=== PATIENT | male | born 1960 | race African-American/Black ===

== ENCOUNTER 2018-06-05 09:18 | Inpatient (IN) | payer MEDICAID ==
[~2018-06-05] VITALS: Ht 180.3 cm; Wt 90.7 kg
[2018-06-05] MEDS ORDERED: SODIUM CHLORIDE 0.9% 1,000 ML IV ONE (10:53)
[2018-06-05] MEDS ORDERED: ALBUTEROL (0.083%) 2.5MG/3ML NEB HHN STA (10:53)
[2018-06-05] MEDS ORDERED: IPRATROPIUM BROMIDE (0.02%) 0.5MG/2.5ML NEB HHN STA (10:53)
[2018-06-05] MEDS ORDERED: METHYLPREDNISOLONE SOD SUCC 125 MG/2 ML VIAL IV ONE (11:00)
[2018-06-05 11:57] LABS: CHLORIDE 105 mEq/L (98-107)
[2018-06-05 12:10] LABS: BASOPHILS % 0.5 % (0.0-2.0); EOSINOPHILS % 1.1 % (0.0-5.0); HEMATOCRIT. 38.8 % (42.0-52.0); HEMOGLOBIN. 12.7 g/dL (14.0-18.0); LYMPHOCYTES % 24.8 % (20.0-50.0); MEAN CORPUSCULAR HEMOGLOBIN 26.6 pg (28.0-32.0); MEAN CORPUSCULAR VOLUME 81.1 fL (80.0-94.0); MEAN PLATELET VOLUME 8.8 fl (7.4-10.4); MONOCYTES % 7.2 % (2.0-8.0); NEUTROPHILS % 66.4 % (40.0-76.0); PLATELET 280 x1000/uL (130-400); RED BLOOD CELL COUNT 4.78 mill/uL (4.7-6.1); RED CELL DISTRIBUTION WIDTH 15.9 % (11.6-14.6)
[2018-06-05 12:31] LABS: CLARITY URINE CLEAR (CLEAR); COLOR URINE YELLOW (YELLOW); KETONES URINE 1+ (NEGATIVE); LEUKOCYTE ESTERASE URINE NEGATIVE (NEGATIVE); NITRITE URINE NEGATIVE (NEGATIVE); OCCULT BLOOD URINE NEGATIVE (NEGATIVE); PROTEIN URINE 1+ (NEGATIVE); SPECIFIC GRAVITY URINE 1.021 (1.005-1.030)
[2018-06-05] MEDS ORDERED: FUROSEMIDE 40MG/4ML VIAL IVP NR (12:55)
[2018-06-05] MEDS ORDERED: LEVOFLOXACIN 750MG PREMIX 150 ML IV NR ×2 (12:55→22:30)
[2018-06-05] MEDS ORDERED: IOHEXOL-350 100 ML BOTTLE ONE (13:12)
[2018-06-05 13:35] LABS: PROTHROMBIN TIME 10.2 sec (9.1-11.1)
[2018-06-05] MEDS ORDERED: DEXTROSE 50% WATER 50ML SYRINGE IV PRN (14:00)
[2018-06-05] MEDS ORDERED: IPRATROPIUM/ALBUTEROL 0.5-3(2.5)MG/3ML NEB HHN PRN (14:00)
[2018-06-05] MEDS ORDERED: CLONIDINE 0.1MG TABLET PO PRN (14:00)
[2018-06-05 16:26] LABS: BG BASE EXCESS 3.2 mmol/L (-2.0-2.0); BG CARBOXYHEMOGLOBIN 1.4 % (0.5-1.5); BG DEOXYHEMOGLOBIN 9.3 % (0.0-5.0); BG FRACTION INSPIRED OXYGEN 36; BG HCO3 ACT 27.8 mmol/L (22.0-26.0); BG METHEMOGLOBIN 0.2 % (0.0-1.5); BG OXYGEN SATURATION 90.5 % (92.0-98.5); BG OXYHEMOGLOBIN 89.1 % (94.0-97.0); BG PCO2 42.4 mmHg (35.0-45.0); BG PH 7.434 (7.350-7.450); BG PO2 57.3 mmHg (75.0-100.0); BG SAMPLE SITE RIGHT RADIAL; BG TOTAL HEMOGLOBIN 12.8 g/dL (12.0-18.0); BG VENT MODE NASAL CANNULA
[2018-06-05] MEDS: IPRATROPIUM/ALBUTEROL 0.5-3(2.5)MG/3ML NEB HHN SCH (20:10)
[2018-06-05 21:00] VITALS: BP 171/100
[2018-06-05 21:15] VITALS: BP 171/100
[2018-06-05] MEDS ORDERED: POTASSIUM CHLORIDE 20MEQ TABLET SR PO NR (21:30)
[2018-06-05] MEDS: LOSARTAN POTASSIUM 50 MG TABLET PO SCH (22:14)
[2018-06-05] MEDS: AMLODIPINE 5MG TABLET PO SCH (22:14)
[2018-06-05] MEDS: BLOOD SUGAR DIAGNOSTIC STRIP TEST SCH (22:14)
[2018-06-05] MEDS: INSULIN LISPRO 100 UNITS/ML SUBCUT SCH (22:33)
[2018-06-05 23:20] VITALS: BP 124/82
[2018-06-06] VITALS: BP 134/88
[2018-06-06 04:00] VITALS: BP 131/85
[2018-06-06] MEDS: BLOOD SUGAR DIAGNOSTIC STRIP TEST SCH ×4 (06:29→21:15)
[2018-06-06 07:32] LABS: BASOPHILS % 0.5 % (0.0-2.0); HEMATOCRIT. 35.5 % (42.0-52.0); HEMOGLOBIN. 11.7 g/dL (14.0-18.0); LYMPHOCYTES % 17.6 % (20.0-50.0); MEAN CORPUSCULAR HEMOGLOBIN 26.4 pg (28.0-32.0); MEAN CORPUSCULAR VOLUME 80.2 fL (80.0-94.0); MEAN PLATELET VOLUME 8.8 fl (7.4-10.4); MONOCYTES % 11.1 % (2.0-8.0); NEUTROPHILS % 70.8 % (40.0-76.0); PLATELET 261 x1000/uL (130-400); RED BLOOD CELL COUNT 4.43 mill/uL (4.7-6.1); RED CELL DISTRIBUTION WIDTH 15.5 % (11.6-14.6)
[2018-06-06] MEDS: IPRATROPIUM/ALBUTEROL 0.5-3(2.5)MG/3ML NEB HHN SCH ×3 (07:54→22:25)
[2018-06-06 08:03] VITALS: BP 152/94
[2018-06-06] MEDS: AMLODIPINE 5MG TABLET PO SCH ×2 (08:51→21:08)
[2018-06-06] MEDS: LOSARTAN POTASSIUM 50 MG TABLET PO SCH (08:51)
[2018-06-06] MEDS: FUROSEMIDE 40MG/4ML VIAL IVP SCH (08:52)
[2018-06-06] MEDS: INSULIN LISPRO 100 UNITS/ML SUBCUT SCH ×4 (08:53→21:32)
[2018-06-06 11:17] LABS: CHLORIDE 107 mEq/L (98-107)
[2018-06-06] MEDS ORDERED: PNEUMOCOCCAL 23-VAL P-SAC VAC 0.5 ML IM ONE (12:00)
[2018-06-06 12:29] VITALS: BP 144/90
[2018-06-06] MEDS: LEVOFLOXACIN 500MG PREMIX 100 ML IV SCH (14:11)
[2018-06-06 16:21] VITALS: BP 143/85
[2018-06-06] MEDS: BENZONATATE 100MG CAPSULE PO SCH ×2 (16:24→21:07)
[2018-06-07] MEDS: BENZONATATE 100MG CAPSULE PO SCH ×3 (05:15→21:27)
[2018-06-07] MEDS: INSULIN LISPRO 100 UNITS/ML SUBCUT SCH ×4 (05:20→21:41)
[2018-06-07] MEDS: BLOOD SUGAR DIAGNOSTIC STRIP TEST SCH ×4 (05:20→21:28)
[2018-06-07 08:00] VITALS: BP 159/104
[2018-06-07] MEDS: AMLODIPINE 5MG TABLET PO SCH ×2 (08:54→21:27)
[2018-06-07] MEDS: FUROSEMIDE 40MG/4ML VIAL IVP SCH ×2 (08:54→09:04)
[2018-06-07] MEDS: LOSARTAN POTASSIUM 50 MG TABLET PO SCH (08:54)
[2018-06-07 09:10] LABS: BASOPHILS % 0.4 % (0.0-2.0); EOSINOPHILS % 1.3 % (0.0-5.0); HEMATOCRIT. 37.2 % (42.0-52.0); HEMOGLOBIN. 12.2 g/dL (14.0-18.0); LYMPHOCYTES % 25.6 % (20.0-50.0); MEAN CORPUSCULAR HEMOGLOBIN 26.6 pg (28.0-32.0); MEAN PLATELET VOLUME 8.5 fl (7.4-10.4); MONOCYTES % 8.9 % (2.0-8.0); NEUTROPHILS % 63.8 % (40.0-76.0); PLATELET 289 x1000/uL (130-400); RED CELL DISTRIBUTION WIDTH 15.7 % (11.6-14.6)
[2018-06-07] MEDS: IPRATROPIUM/ALBUTEROL 0.5-3(2.5)MG/3ML NEB HHN SCH ×3 (09:17→20:48)
[2018-06-07 10:14] LABS: CHLORIDE 105 mEq/L (98-107)
[2018-06-07] MEDS ORDERED: HYDROCODONE/ACETAMINOPHEN 5/325MG TABLET PO PRN (10:15)
[2018-06-07 12:00] VITALS: BP 139/90
[2018-06-07] MEDS: ACETAMINOPHEN 325MG TABLET PO PRN (13:08)
[2018-06-07] MEDS ORDERED: POTASSIUM CHLORIDE 20MEQ TABLET SR PO NR (13:15)
[2018-06-07] MEDS: LEVOFLOXACIN 500MG PREMIX 100 ML IV SCH (14:48)
[2018-06-07 16:00] VITALS: BP 148/96
[2018-06-07 20:00] VITALS: BP 144/88
[2018-06-08] VITALS: BP 135/74
[2018-06-08 04:00] VITALS: BP 140/78
[2018-06-08] MEDS: BLOOD SUGAR DIAGNOSTIC STRIP TEST SCH ×3 (06:50→17:40)
[2018-06-08] MEDS: BENZONATATE 100MG CAPSULE PO SCH ×2 (06:51→14:03)
[2018-06-08] MEDS: INSULIN LISPRO 100 UNITS/ML SUBCUT SCH ×3 (07:57→18:10)
[2018-06-08 08:00] VITALS: BP 145/93
[2018-06-08] MEDS: IPRATROPIUM/ALBUTEROL 0.5-3(2.5)MG/3ML NEB HHN SCH ×2 (08:11→13:21)
[2018-06-08] MEDS: LOSARTAN POTASSIUM 50 MG TABLET PO SCH (08:42)
[2018-06-08] MEDS: AMLODIPINE 5MG TABLET PO SCH (08:42)
[2018-06-08] MEDS: ACETAMINOPHEN 325MG TABLET PO PRN (08:45)
[2018-06-08 09:09] LABS: BASOPHILS % 0.4 % (0.0-2.0); EOSINOPHILS % 2.3 % (0.0-5.0); HEMATOCRIT. 39.9 % (42.0-52.0); HEMOGLOBIN. 12.9 g/dL (14.0-18.0); LYMPHOCYTES % 29.6 % (20.0-50.0); MEAN CORPUSCULAR HEMOGLOBIN 26.2 pg (28.0-32.0); MEAN CORPUSCULAR VOLUME 81.2 fL (80.0-94.0); MEAN PLATELET VOLUME 7.9 fl (7.4-10.4); MONOCYTES % 8.7 % (2.0-8.0); PLATELET 313 x1000/uL (130-400); RED BLOOD CELL COUNT 4.92 mill/uL (4.7-6.1)
[2018-06-08] MEDS: FUROSEMIDE 40MG/4ML VIAL IVP SCH (09:47)
[2018-06-08 10:30] LABS: CHLORIDE 106 mEq/L (98-107)
[2018-06-08 12:00] VITALS: BP 149/50
[2018-06-08] MEDS ORDERED: PAPAVERINE HCL 30 MG/ML 2ML IV ONE (12:33)
[2018-06-08] MEDS: POTASSIUM CHLORIDE 20MEQ TABLET SR PO SCH ×2 (14:02→17:46)
[2018-06-08] MEDS ORDERED: LEVOFLOXACIN 500MG PREMIX 100 ML IV SCH (15:30)
[2018-06-08 16:00] VITALS: BP 136/79
[2018-06-08] MEDS ORDERED: OMEP20CA10 PO (16:14)
[2018-06-08] MEDS ORDERED: ATEN50TA PO (16:14)
[2018-06-08] MEDS ORDERED: METF-416 PO (16:14)
[2018-06-08] MEDS ORDERED: DUTA0.5C15 PO (16:14)
[2018-06-08] MEDS ORDERED: QUIN40TA14 PO (16:14)
[2018-06-08] MEDS ORDERED: ALBU18HF2 IH (16:14)
[2018-06-08] MEDS ORDERED: FERR325T6 PO (16:14)
[2018-06-08] MEDS ORDERED: LOVA20TA2 PO (16:14)
[2018-06-08 16:25] VITALS: BP 131/85
== END 2018-06-08 19:48 | disposition home or self-care (01) | DRG 720 ==
LOC: ER 09:18 → 7WST 12:58 → EDBEDREQTM 13:01 → EDBEDREQ 13:01 → ENRESERV 20:05
PROVIDERS: ADMIT Internal Medicine; ATTEND Internal Medicine
DX: A41.9 Sepsis, unspecified organism (principal); J96.01 Acute respiratory failure with hypoxia; I50.31 Acute diastolic (congestive) heart failure; J18.9 Pneumonia, unspecified organism; I27.20 Pulmonary hypertension, unspecified; I11.0 Hypertensive heart disease with heart failure; D64.9 Anemia, unspecified; E11.9 Type 2 diabetes mellitus without complications; R65.10 Systemic inflammatory response syndrome (SIRS) of non-infectious origin without acute organ dysfunction; E87.6 Hypokalemia; Z87.891 Personal history of nicotine dependence; Z90.49 Acquired absence of other specified parts of digestive tract
CPT/HCPCS: 36415; 36600; 71045; 71275; 80048; 80061; 82375; 82805; 82962; 83036; 83605; 83880; 84145; 84443; 84484; 87070; 87804; 90732; 93005; 93306; 94640; 96374; 99291; J1815; J1940; J1956; J2440; J2930; J7030; J7050; J7611; J7620; Q9967

== ENCOUNTER 2022-05-26 21:02 | Inpatient (IN) | payer MEDICAID, OTHER ==
[~2022-05-26] VITALS: Ht 180.3 cm; Wt 107.0 kg
[~2022-05-26 21:02] MED LIST: ALBU18HF2 IH; ATEN50TA PO; DUTA0.5C37 PO; FERR325T6 PO; LOVA20TA2 PO; METF-416 PO; OMEP20CA14 PO
[2022-05-27] MEDS ORDERED: CEFTRIAXONE 1 G PREMIX 50 ML IV ONE (02:00)
[2022-05-27] MEDS ORDERED: AZITHROMYCIN 500MG/250ML 250 ML IV ONE (02:00)
[2022-05-27 02:01] LABS: BASOPHILS % 0.6 % (0.0-2.0); EOSINOPHILS % 1.8 % (0.0-5.0); HEMATOCRIT. 36.8 % (42.0-52.0); HEMOGLOBIN. 12.1 g/dL (14.0-18.0); LYMPHOCYTES % 22.6 % (20.0-50.0); MEAN CORPUSCULAR HEMOGLOBIN 26.1 pg (28.0-32.0); MEAN CORPUSCULAR VOLUME 79.7 fL (80.0-94.0); MEAN PLATELET VOLUME 7.9 fl (7.4-10.4); MONOCYTES % 6.6 % (2.0-8.0); NEUTROPHILS % 68.4 % (40.0-76.0); PLATELET 288 x1000/uL (130-400); RED BLOOD CELL COUNT 4.63 mill/uL (4.7-6.1); RED CELL DISTRIBUTION WIDTH 17.5 % (11.6-14.6)
[2022-05-27 02:12] LABS: CHLORIDE 111 mEq/L (98-107)
[2022-05-27] MEDS ORDERED: ONDANSETRON HCL 4MG/2ML INJ IV PRN (10:00)
[2022-05-27] MEDS ORDERED: ACETAMINOPHEN 325MG TABLET PO PRN (10:00)
[2022-05-27] MEDS: LOSARTAN POTASSIUM 100 MG TABLET PO SCH (11:16)
[2022-05-27] MEDS: POTASSIUM CHLORIDE 20MEQ TABLET SR PO SCH (11:17)
[2022-05-27] MEDS: FUROSEMIDE 40MG/4ML VIAL IVP SCH (11:17)
[2022-05-27 15:05] VITALS: BP 199/109
[2022-05-27] MEDS ORDERED: HYDRALAZINE HCL 100MG TABLET PO NR (15:15)
[2022-05-27] MEDS ORDERED: XALAO EACHEYE (15:39)
[2022-05-27] MEDS ORDERED: BRIM15DR8 EACHEYE (15:39)
[2022-05-27] MEDS ORDERED: GLIP10TA10 PO (15:39)
[2022-05-27] MEDS ORDERED: ASPI-1406 PO (15:39)
[2022-05-27] MEDS ORDERED: POTA-185 PO (15:39)
[2022-05-27] MEDS ORDERED: NIFE-32 PO (15:39)
[2022-05-27] MEDS ORDERED: VALS40TA11 PO (15:39)
[2022-05-27] MEDS ORDERED: TIOT18CA3 IH (15:39)
[2022-05-27] MEDS ORDERED: CALC-992 PO (15:39)
[2022-05-27] MEDS ORDERED: DORZ10DR9 EACHEYE (15:39)
[2022-05-27] MEDS ORDERED: ATOR10TA69 PO (15:39)
[2022-05-27] MEDS ORDERED: DOCU-150 PO (15:39)
[2022-05-27] MEDS ORDERED: DUTA1CPM4 PO (15:39)
[2022-05-27] MEDS ORDERED: TADA20TA PO (15:41)
[2022-05-27] MEDS ORDERED: VIAG100 PO (15:41)
[2022-05-27 16:30] VITALS: BP 158/91
[2022-05-27] MEDS ORDERED: DEXTROSE 50% WATER 50ML SYRINGE IV PRN (19:15)
[2022-05-27] MEDS ORDERED: GUAIFENESIN-DM 200MG-20MG/10ML UDC PO PRN (19:15)
[2022-05-27 20:00] VITALS: BP 165/120
[2022-05-27] MEDS: HYDRALAZINE HCL 100MG TABLET PO SCH (21:07)
[2022-05-27] MEDS: INSULIN LISPRO 100 UNITS/ML SUBCUT SCH (21:48)
[2022-05-27] MEDS: BLOOD SUGAR DIAGNOSTIC STRIP TEST SCH (21:48)
[2022-05-27] MEDS: IPRATROPIUM BROMIDE (0.02%) 0.5MG/2.5ML NEB HHN SCH (22:00)
[2022-05-27] MEDS: AZITHROMYCIN 500 MG TABLET PO SCH (22:01)
[2022-05-27] MEDS ORDERED: CLONIDINE 0.1MG TABLET PO PRN (23:00)
[2022-05-27] MEDS ORDERED: LATANOPROST 0.005% OPHTH DROPS 2.5ML EACHEYE SCH (23:12)
[2022-05-28] VITALS: BP 187/99
[2022-05-28] MEDS: IPRATROPIUM BROMIDE (0.02%) 0.5MG/2.5ML NEB HHN SCH ×2 (02:55→14:15)
[2022-05-28 04:00] VITALS: BP 137/75
[2022-05-28] MEDS: HYDRALAZINE HCL 100MG TABLET PO SCH ×2 (05:26→13:04)
[2022-05-28] MEDS ORDERED: CEFTRIAXONE 1,000 MG in DEXTROSE 5% WATER 50 ML IV SCH (06:00)
[2022-05-28] MEDS: BLOOD SUGAR DIAGNOSTIC STRIP TEST SCH ×2 (06:26→12:59)
[2022-05-28] MEDS: INSULIN LISPRO 100 UNITS/ML SUBCUT SCH ×2 (06:26→13:02)
[2022-05-28 08:00] VITALS: BP 151/93
[2022-05-28 08:28] LABS: CHLORIDE 105 mEq/L (98-107)
[2022-05-28] MEDS ORDERED: DORZOLAM/TIMOLOL 2.23/0.68% OPHTH DROPS 10ML EACHEYE SCH (09:00)
[2022-05-28] MEDS: BRIMONIDINE 0.2% OPHTH DROPS 5ML EACHEYE SCH ×2 (09:59→13:01)
[2022-05-28] MEDS: FUROSEMIDE 40MG/4ML VIAL IVP SCH (09:59)
[2022-05-28] MEDS: LOSARTAN POTASSIUM 100 MG TABLET PO SCH (10:00)
[2022-05-28] MEDS: POTASSIUM CHLORIDE 20MEQ TABLET SR PO SCH (10:00)
[2022-05-28] MEDS: AZITHROMYCIN 500 MG TABLET PO SCH (10:00)
[2022-05-28 12:00] VITALS: BP 142/100
[2022-05-28] MEDS ORDERED: LEVO-65 MT (13:57)
[2022-05-28] MEDS ORDERED: HYDR100T26 PO (13:57)
[2022-05-28] MEDS ORDERED: FURO-152 MT (13:57)
[2022-05-28 16:35] VITALS: BP 142/100
[2022-05-28 19:38] LABS: *AMPHETAMINES SCREEN URINE NEGATIVE (NEGATIVE); *BARBITURATES SCREEN URINE NEGATIVE (NEGATIVE); *BENZODIAZEPINES SCREEN URINE NEGATIVE (NEGATIVE); *COCAINE SCREEN URINE NEGATIVE (NEGATIVE); CANNABINOID URINE SCREEN NEGATIVE (NEGATIVE); METHADONE URINE SCREEN NEGATIVE (NEGATIVE); OPIATES URINE SCREEN NEGATIVE (NEGATIVE); PHENCYCLIDINE URINE SCREEN NEGATIVE (NEGATIVE)
== END 2022-05-28 17:06 | disposition home or self-care (01) | DRG 194 ==
LOC: ER 21:02 → 8WST 05-27 04:48 → EDBEDREQ 05-27 04:52 → EDBEDREQTM 05-27 04:52 → ENRESERV 05-27 14:19
PROVIDERS: ADMIT Internal Medicine; ATTEND Internal Medicine
DX: I11.0 Hypertensive heart disease with heart failure (principal); J96.00 Acute respiratory failure, unspecified whether with hypoxia or hypercapnia; I50.41 Acute combined systolic (congestive) and diastolic (congestive) heart failure; J18.9 Pneumonia, unspecified organism; I16.0 Hypertensive urgency; E87.6 Hypokalemia; E11.9 Type 2 diabetes mellitus without complications; Z20.822 Contact with and (suspected) exposure to COVID-19; E66.9 Obesity, unspecified; Z68.32 Body mass index [BMI] 32.0-32.9, adult; Z79.899 Other long term (current) drug therapy; Z87.891 Personal history of nicotine dependence; Z90.49 Acquired absence of other specified parts of digestive tract
CPT/HCPCS: 36415; 71045; 80048; 80053; 80305; 82962; 83605; 83880; 84484; 85025; 87426; 93005; 93306; 94640; 99285; C9803; J0456; J0696; J1815; J1940; J7060

== ENCOUNTER 2023-02-23 19:35 | Emergency (ER) | payer MEDICAID, OTHER ==
[~2023-02-23] VITALS: Ht 180.3 cm; Wt 95.0 kg
[~2023-02-23 19:35] MED LIST changes: +ASPI-1406 PO; -ATEN50TA PO; +ATOR10TA69 PO; +BRIM15DR8 EACHEYE; +CALC-992 PO; +DOCU-150 PO; +DORZ10DR9 EACHEYE; -DUTA0.5C37 PO; +DUTA1CPM4 PO; -FERR325T6 PO; +FURO-152 MT; +GLIP10TA10 PO; +HYDR100T26 PO; +LEVO-65 MT; -LOVA20TA2 PO; +NIFE-32 PO; -OMEP20CA14 PO; +POTA-185 PO; +TADA20TA PO; +TIOT18CA3 IH; +VALS40TA11 PO; +VIAG100 PO; +XALAO EACHEYE
[2023-02-23 19:40] VITALS: O2SAT 98
[2023-02-23 21:09] LABS: BASOPHILS % 0.3 % (0.0-2.0); DIFFERENTIAL COMMENT 0; EOSINOPHILS % 0.6 % (0.0-5.0); HEMATOCRIT. 38.3 % (42.0-52.0); HEMOGLOBIN. 12.6 g/dL (14.0-18.0); LYMPHOCYTES % 13.3 % (20.0-50.0); MEAN CORPUSCULAR HEMOGLOBIN 25.6 pg (28.0-32.0); MEAN CORPUSCULAR HGB CONC 32.8 g/dL (31.0-37.0); MEAN PLATELET VOLUME 7.5 fl (7.4-10.4); MONOCYTES % 5.9 % (2.0-8.0); NEUTROPHILS % 79.9 % (40.0-76.0); PLATELET 253 x1000/uL (130-400); RED BLOOD CELL COUNT 4.91 mill/uL (4.7-6.1); WHITE BLOOD COUNT 11.3 x1000/uL (4.5-11.0)
[2023-02-23 21:16] LABS: CHLORIDE 103 mEq/L (98-107); INDEX HEMOLYSI 2 (1-3); INDEX ICTERIC 1 (1-4); INDEX LIPEMIC 1 (1-3); POTASSIUM 3.6 mEq/L (3.5-5.1); SODIUM 135 mEq/L (136-145)
[2023-02-23 21:17] LABS: CALCIUM 9.7 mg/dL (8.5-10.1)
[2023-02-23 21:25] LABS: ALANINE AMINOTRANSFERASE 23 IU/L (13-61); ALBUMIN 4.2 g/dL (3.4-5.0); ASPARTATE AMINOTRANSFERASE 24 IU/L (15-37); BILIRUBIN TOTAL 0.5 mg/dL (0.1-1.0); CARBON DIOXIDE 25 mEq/L (21-32); CREATININE 1.7 mg/dL (0.6-1.3); GLUCOSE 152 mg/dL (70-105); PROTEIN TOTAL 8.7 g/dL (6.0-8.3); UREA NITROGEN BLOOD 22 mg/dL (7-21)
[2023-02-23] MEDS ORDERED: MORPHINE SULFATE 4 MG/ML CPJ (NOT FOR IM USE) IV ONE (21:45)
[2023-02-23 23:05] LABS: CLARITY URINE CLEAR (CLEAR); COLOR URINE YELLOW (YELLOW); PROTEIN URINE TRACE (NEGATIVE)
[2023-02-23 23:06] LABS: GLUCOSE URINE 3+ (NEGATIVE); KETONES URINE TRACE (NEGATIVE); LEUKOCYTE ESTERASE URINE NEGATIVE (NEGATIVE); NITRITE URINE NEGATIVE (NEGATIVE); OCCULT BLOOD URINE 2+ (NEGATIVE); UROBILINOGEN URINE 0.2 E.U./dL (0.2-1.0)
[2023-02-23 23:08] LABS: SQUAMOUS EPITHELIAL CELL URINE NONE SEEN /lpf (RARE/1+)
[2023-02-23 23:09] LABS: BACTERIA URINE NONE SEEN; RBC URINE 25-50 /hpf (0-2); WBC URINE 0-2 /hpf (0-2); YEAST URINE NONE SEEN
[2023-02-23] MEDS ORDERED: TAMS-11 MT (23:17)
[2023-02-23 23:30] VITALS: BP 169/98; PULSE 73; RESP 20; TEMP 98.6
== END 2023-02-23 23:31 | disposition home or self-care (01) ==
LOC: ER 19:35
DX: R33.9 Retention of urine, unspecified (principal); I13.0 Hypertensive heart and chronic kidney disease with heart failure and stage 1 through stage 4 chronic kidney disease, or unspecified chronic kidney disease; E11.22 Type 2 diabetes mellitus with diabetic chronic kidney disease; N18.9 Chronic kidney disease, unspecified; I50.9 Heart failure, unspecified; Z79.899 Other long term (current) drug therapy; Z98.890 Other specified postprocedural states; Z90.49 Acquired absence of other specified parts of digestive tract
CPT/HCPCS: 80053; 81003; 85025; 36415; 51702; 96374; 99284; J2270; Z7610 ×3; A4315

== ENCOUNTER 2024-07-19 11:49 | Emergency (ER) | payer MEDICAID ==
[~2024-07-19] VITALS: Ht 180.3 cm; Wt 98.0 kg
[~2024-07-19 11:49] MED LIST changes: -DOCU-150 PO; +DOCU-422 PO; -GLIP10TA10 PO; +GLIP10TA17 PO; +HYDR100T11 PO; -HYDR100T26 PO; +TAMS-11 MT; -XALAO EACHEYE; +XALAO LEFTEYE
[2024-07-19 11:58] VITALS: O2SAT 95
[2024-07-19 14:27] LABS: CLARITY URINE CLEAR (CLEAR); COLOR URINE YELLOW (YELLOW); GLUCOSE URINE 2+ (NEGATIVE); KETONES URINE 1+ (NEGATIVE); LEUKOCYTE ESTERASE URINE NEGATIVE (NEGATIVE); NITRITE URINE NEGATIVE (NEGATIVE); OCCULT BLOOD URINE NEGATIVE (NEGATIVE); PH URINE 7.5 (4.5-8.0); PROTEIN URINE 1+ (NEGATIVE); SPECIFIC GRAVITY URINE 1.015 (1.005-1.030)
[2024-07-19 14:44] LABS: SQUAMOUS EPITHELIAL CELL URINE RARE /lpf (RARE/1+); WBC URINE 0-2 /hpf (0-2)
[2024-07-19 14:45] LABS: BACTERIA URINE NONE SEEN; RBC URINE 0-2 /hpf (0-2)
[2024-07-19 15:31] VITALS: BP 169/99; PULSE 76; RESP 18; TEMP 36.94740; O2SAT 96
[2024-08-13] MEDS ORDERED: HYDR100T11 PO (12:33)
[2024-08-13] MEDS ORDERED: ATRO2DRO6 LEFTEYE (12:33)
[2024-08-13] MEDS ORDERED: ATOR20TA65 PO (12:33)
[2024-08-13] MEDS ORDERED: PRED5DRO22 RIGHTEYE (12:33)
[2024-08-13] MEDS ORDERED: BRIM5DRO BOTHEYE (12:33)
[2024-08-13] MEDS ORDERED: POTA-205 PO (12:33)
[2024-08-13] MEDS ORDERED: LABE200T9 PO (12:33)
[2024-08-13] MEDS ORDERED: EMPA25TA PO (12:33)
[2024-08-13] MEDS ORDERED: VALS160T28 PO (12:33)
[2024-08-13] MEDS ORDERED: TAMS-11 PO (12:33)
== END 2024-07-19 16:13 | disposition home or self-care (01) ==
LOC: ER 11:49
DX: R33.8 Other retention of urine (principal); E11.9 Type 2 diabetes mellitus without complications; I11.0 Hypertensive heart disease with heart failure; I50.9 Heart failure, unspecified; N40.1 Benign prostatic hyperplasia with lower urinary tract symptoms; Z79.82 Long term (current) use of aspirin; Z79.84 Long term (current) use of oral hypoglycemic drugs; Z79.899 Other long term (current) drug therapy; Z90.49 Acquired absence of other specified parts of digestive tract
CPT/HCPCS: 51702; 81003; 99284

== ENCOUNTER 2024-08-08 05:28 | Emergency (ER) | payer MEDICAID ==
[~2024-08-08] VITALS: Ht 180.3 cm; Wt 114.0 kg
[2024-08-08 05:33] VITALS: BP 178/88
[2024-08-08] MEDS: ACETAMINOPHEN 325MG TABLET PO ONE (06:45)
[2024-08-08 07:36] LABS: BASOPHILS % 0.6 % (0.0-2.0); EOSINOPHILS % 1.4 % (0.0-5.0); HEMATOCRIT. 40.6 % (42.0-52.0); HEMOGLOBIN. 12.9 g/dL (14.0-18.0); LYMPHOCYTES % 13.4 % (20.0-50.0); MEAN CORPUSCULAR HEMOGLOBIN 26.1 pg (28.0-32.0); MEAN CORPUSCULAR HGB CONC 31.8 g/dL (31.0-37.0); MEAN CORPUSCULAR VOLUME 82.1 fL (80.0-94.0); MONOCYTES % 6.5 % (2.0-8.0); NEUTROPHILS % 78.1 % (40.0-76.0); PLATELET 374 x1000/uL (130-400); RED BLOOD CELL COUNT 4.94 mill/uL (4.7-6.1); RED CELL DISTRIBUTION WIDTH 17.4 % (11.6-14.6); WHITE BLOOD COUNT 10.8 x1000/uL (4.5-11.0)
[2024-08-08 07:46] LABS: CHLORIDE 107 mEq/L (98-107); POTASSIUM 3.4 mEq/L (3.5-5.1); SODIUM 141 mEq/L (136-145)
[2024-08-08 07:47] LABS: CALCIUM 9.5 mg/dL (8.7-10.4); CARBON DIOXIDE 22 mEq/L (21-32)
[2024-08-08 07:52] LABS: CREATININE 1.3 mg/dL (0.6-1.3); GLUCOSE 144 mg/dL (70-105)
[2024-08-08 07:53] LABS: UREA NITROGEN BLOOD 20 mg/dL (9-23)
[2024-08-08 08:35] VITALS: PULSE 88; RESP 18
[2024-08-08 09:01] VITALS: TEMP 36.4
[2024-08-08 09:05] LABS: CLARITY URINE CLEAR (CLEAR); COLOR URINE YELLOW (YELLOW); GLUCOSE URINE 3+ (NEGATIVE); KETONES URINE TRACE (NEGATIVE); LEUKOCYTE ESTERASE URINE NEGATIVE (NEGATIVE); NITRITE URINE NEGATIVE (NEGATIVE); OCCULT BLOOD URINE 3+ (NEGATIVE); PROTEIN URINE TRACE (NEGATIVE); UROBILINOGEN URINE 0.2 E.U./dL (0.2-1.0)
[2024-08-08 09:14] LABS: BACTERIA URINE RARE; RBC URINE 25-50 /hpf (0-2); SQUAMOUS EPITHELIAL CELL URINE NONE SEEN /lpf (RARE/1+); WBC URINE 0-2 /hpf (0-2); YEAST URINE NONE SEEN
[2024-08-13] MEDS ORDERED: ATOR20TA65 PO (12:33)
[2024-08-13] MEDS ORDERED: TAMS-11 PO (12:33)
[2024-08-13] MEDS ORDERED: ATRO2DRO6 LEFTEYE (12:33)
[2024-08-13] MEDS ORDERED: EMPA25TA PO (12:33)
[2024-08-13] MEDS ORDERED: POTA-205 PO (12:33)
[2024-08-13] MEDS ORDERED: PRED5DRO22 RIGHTEYE (12:33)
[2024-08-13] MEDS ORDERED: BRIM5DRO BOTHEYE (12:33)
[2024-08-13] MEDS ORDERED: HYDR100T11 PO (12:33)
[2024-08-13] MEDS ORDERED: VALS160T28 PO (12:33)
[2024-08-13] MEDS ORDERED: LABE200T9 PO (12:33)
[2024-08-23] MEDS ORDERED: WHEA144P PO (10:18)
[2024-08-23] MEDS ORDERED: LABE100T9 PO (10:18)
[2024-08-28] MEDS ORDERED: DOCU100T PO (05:48)
== END 2024-08-08 14:56 | disposition left against medical advice (07) ==
LOC: ER 05:37
DX: R33.9 Retention of urine, unspecified (principal); I11.0 Hypertensive heart disease with heart failure; I50.9 Heart failure, unspecified; E11.9 Type 2 diabetes mellitus without complications; Z90.49 Acquired absence of other specified parts of digestive tract; Z79.84 Long term (current) use of oral hypoglycemic drugs; Z79.82 Long term (current) use of aspirin; Z79.899 Other long term (current) drug therapy
CPT/HCPCS: 36415; 51702; 80048; 81003; 85025; 99284

== ENCOUNTER 2024-08-31 19:45 | Inpatient (IN) | payer MEDICAID ==
[~2024-08-31] VITALS: Ht 167.6 cm; Wt 79.8 kg
[~2024-08-31 19:45] MED LIST changes: -ATOR10TA69 PO; +ATOR20TA65 PO; +ATRO2DRO6 LEFTEYE; -BRIM15DR8 EACHEYE; +BRIM5DRO BOTHEYE; -CALC-992 PO; -DOCU-422 PO; +DOCU100T PO; -DORZ10DR9 EACHEYE; -DUTA1CPM4 PO; +EMPA25TA PO; -FURO-152 MT; +HYDR25TA78 PO; +KEPP500 PO; +LABE100T9 PO; -LEVO-65 MT; +MERO1PIG IV; -METF-416 PO; -NIFE-32 PO; -POTA-185 PO; +POTA-205 PO; +PRED5DRO22 RIGHTEYE; -TADA20TA PO; -TAMS-11 MT; +TAMS-11 PO; +VALS160T28 PO; -VALS40TA11 PO; -VIAG100 PO; +WHEA144P PO
[2024-08-31 19:46] VITALS: BP 158/94; PULSE 74; RESP 19; TEMP 36.9
[2024-08-31 20:00] VITALS: BP 158/94; PULSE 74; RESP 19; TEMP 36.8; O2SAT 97
[2024-08-31] MEDS ORDERED: ONDANSETRON HCL 4MG/2ML INJ IV PRN (20:45)
[2024-08-31] MEDS ORDERED: GUAIFENESIN 200MG/10ML SUGAR FREE UDC PO PRN (20:45)
[2024-08-31] MEDS ORDERED: CLONIDINE 0.1MG TABLET PO PRN (20:45)
[2024-08-31] MEDS ORDERED: MAGNESIUM/ALUMINUM HYDROXIDE/SIMETHICONE 30ML UDC PO PRN (20:45)
[2024-08-31] MEDS ORDERED: NA PHOS,M-B/NA PHOS,DI-BA ENEMA 118ML PR PRN (20:45)
[2024-08-31] MEDS: INSULIN LISPRO 100 UNITS/ML SUBCUT SCH (21:00)
[2024-08-31] MEDS ORDERED: DEXTROSE 50% WATER 50ML SYRINGE IV PRN (21:00)
[2024-08-31] MEDS: LEVETIRACETAM 500MG PREMIX 100 ML IV SCH (21:32)
[2024-08-31] MEDS: BLOOD SUGAR DIAGNOSTIC STRIP TEST SCH (21:46)
[2024-08-31] MEDS ORDERED: MEROPENEM 500MG/50ML 50 ML IV SCH (22:00)
[2024-08-31] MEDS: ATORVASTATIN CALCIUM 20MG TABLET PO SCH (22:27)
[2024-08-31] MEDS: DOCUSATE SODIUM 100MG CAPSULE PO SCH (22:27)
[2024-08-31] MEDS: LABETALOL HCL 100MG TABLET PO SCH (22:28)
[2024-08-31] MEDS: HYDRALAZINE HCL 50MG TABLET PO SCH (22:28)
[2024-08-31] MEDS: ACETAMINOPHEN 650MG/20.3ML UDC PO PRN (22:50)
[2024-08-31] MEDS: SODIUM CHLORIDE 0.45% 1,000 ML IV ONE (22:53)
[2024-08-31] MEDS: PREDNISOLONE ACETATE 1% OPHTH DROPS 5ML RIGHTEYE SCH (23:01)
[2024-08-31] MEDS: BRIMONIDINE 0.2% OPHTH DROPS 5ML BOTHEYE SCH (23:01)
[2024-08-31] MEDS: FLUCONAZOLE 200 MG/100ML BAG 100 ML IV SCH (23:02)
[2024-08-31] MEDS: LATANOPROST 0.005% OPHTH DROPS 2.5ML LEFTEYE SCH (23:02)
[2024-09-01 06:28] LABS: BASOPHILS % 0.7 % (0.0-2.0); DIFFERENTIAL COMMENT 0; EOSINOPHILS % 4.2 % (0.0-5.0); HEMATOCRIT. 24.5 % (42.0-52.0); HEMOGLOBIN. 8.1 g/dL (14.0-18.0); LYMPHOCYTES % 13.2 % (20.0-50.0); MEAN CORPUSCULAR HEMOGLOBIN 26.2 pg (28.0-32.0); MEAN CORPUSCULAR HGB CONC 33.1 g/dL (31.0-37.0); MEAN CORPUSCULAR VOLUME 79.2 fL (80.0-94.0); MEAN PLATELET VOLUME 7.8 fl (7.4-10.4); NEUTROPHILS % 74.9 % (40.0-76.0); PLATELET 438 x1000/uL (130-400); RED BLOOD CELL COUNT 3.09 mill/uL (4.7-6.1); RED CELL DISTRIBUTION WIDTH 17.6 % (11.6-14.6); WHITE BLOOD COUNT 16.5 x1000/uL (4.5-11.0)
[2024-09-01 06:40] LABS: CHLORIDE 108 mEq/L (98-107); POTASSIUM 3.8 mEq/L (3.5-5.1); SODIUM 140 mEq/L (136-145)
[2024-09-01 06:41] LABS: CALCIUM 8.3 mg/dL (8.7-10.4); CARBON DIOXIDE 25 mEq/L (21-32)
[2024-09-01 06:46] LABS: CREATININE 1.3 mg/dL (0.6-1.3); GLUCOSE 172 mg/dL (70-105); UREA NITROGEN BLOOD 16 mg/dL (9-23)
[2024-09-01 06:47] LABS: ALANINE AMINOTRANSFERASE 17 IU/L (10-49)
[2024-09-01 06:48] LABS: ALBUMIN 2.9 g/dL (3.2-4.8); ASPARTATE AMINOTRANSFERASE 15 IU/L (<34)
[2024-09-01 06:49] LABS: BILIRUBIN TOTAL 0.4 mg/dL (0.1-1.0); PROTEIN TOTAL 5.3 g/dL (6.0-8.3)
[2024-09-01 08:00] VITALS: BP 150/76; PULSE 82; RESP 20; TEMP 36.6; O2SAT 100
[2024-09-01] MEDS: ASPIRIN 81MG TABLET PO SCH (08:30)
[2024-09-01] MEDS: FAMOTIDINE 20MG/2ML VIAL IV SCH (08:30)
[2024-09-01] MEDS: TAMSULOSIN HCL 0.4MG SR CAPSULE PO SCH (08:33)
[2024-09-01 20:00] VITALS: BP 153/78; PULSE 74; RESP 19; TEMP 36.5; O2SAT 98
[2024-09-01] MEDS: ACETAMINOPHEN 500MG TABLET PO PRN (21:04)
[2024-09-02 08:00] VITALS: BP 149/91; PULSE 70; RESP 20; TEMP 36.7; O2SAT 96
[2024-09-02] MEDS: ATROPINE SULFATE 1% OPHTH 2ML LEFTEYE SCH (08:23)
[2024-09-02 20:00] VITALS: BP 135/71; PULSE 91; RESP 18; TEMP 36.9; O2SAT 96
[2024-09-03 08:00] VITALS: BP 155/91; PULSE 73; RESP 21; TEMP 36.3; O2SAT 98
[2024-09-03 20:00] VITALS: BP 165/95; PULSE 68; RESP 18; TEMP 37.3; O2SAT 98
[2024-09-04 06:33] LABS: BASOPHILS % 1.2 % (0.0-2.0); DIFFERENTIAL COMMENT 0; HEMATOCRIT. 23.2 % (42.0-52.0); HEMOGLOBIN. 7.8 g/dL (14.0-18.0); LYMPHOCYTES % 24.4 % (20.0-50.0); MEAN CORPUSCULAR HEMOGLOBIN 25.9 pg (28.0-32.0); MEAN CORPUSCULAR HGB CONC 33.5 g/dL (31.0-37.0); MEAN CORPUSCULAR VOLUME 77.4 fL (80.0-94.0); MEAN PLATELET VOLUME 7.4 fl (7.4-10.4); MONOCYTES % 11.9 % (2.0-8.0); NEUTROPHILS % 58.5 % (40.0-76.0); PLATELET 425 x1000/uL (130-400); RED CELL DISTRIBUTION WIDTH 17.9 % (11.6-14.6); WHITE BLOOD COUNT 8.7 x1000/uL (4.5-11.0)
[2024-09-04 06:44] LABS: CARBON DIOXIDE 25 mEq/L (21-32); CHLORIDE 106 mEq/L (98-107); POTASSIUM 3.3 mEq/L (3.5-5.1); SODIUM 140 mEq/L (136-145)
[2024-09-04 06:45] LABS: CALCIUM 8.7 mg/dL (8.7-10.4)
[2024-09-04 06:50] LABS: CREATININE 1.4 mg/dL (0.6-1.3); GLUCOSE 110 mg/dL (70-105); UREA NITROGEN BLOOD 12 mg/dL (9-23)
[2024-09-04] MEDS: POTASSIUM CHLORIDE 20MEQ TABLET SR PO NR (08:06)
[2024-09-04 09:44] LABS: BG BASE EXCESS -1.9 mmol/L (-2.0-3.0); BG CARBOXYHEMOGLOBIN 0.3 % (0.5-1.5); BG DEOXYHEMOGLOBIN 0.3 % (0.0-5.0); BG FRACTION INSPIRED OXYGEN 100; BG HCO3 ACT 23.5 mmol/L (21.0-28.0); BG METHEMOGLOBIN 0.3 % (0.5-1.5); BG OXYGEN SATURATION 99.7 % (94.0-98.0); BG OXYHEMOGLOBIN 99.1 % (94.0-98.0); BG PCO2 42.9 mmHg (35.0-48.0); BG PH 7.357 (7.350-7.450); BG SAMPLE SITE RIGHT RADIAL; BG VENT MODE MASK - NRB
[2024-09-04] MEDS ORDERED: LABETALOL 5MG/ML 4ML INJ IV ONE (09:45)
[2024-09-04] MEDS ORDERED: HYDRALAZINE 10 MG in SODIUM CHLORIDE 0.9% 50 ML IV PRN (09:45)
[2024-09-04] MEDS ORDERED: HYDRALAZINE 20MG/ML VIAL IV PRN (09:45)
[2024-09-04 10:00] VITALS: BP 228/143; PULSE 102; TEMP 97.3; O2SAT 100
[2024-09-04] MEDS ORDERED: HYDRALAZINE 10 MG in SODIUM CHLORIDE 0.9% 49.5 ML IV PRN (10:00)
[2024-09-04 10:42] LABS: TROPONIN I HIGH SENSITIVITY 13 ng/L (3.0-53)
[2024-09-04 11:16] LABS: D-DIMER 9.35 mg/L FEU (<0.50); PARTIAL THROMBOPLASTIN TIME 24.5 sec (23.4-31.0); PROTHROMBIN TIME 11.1 sec (9.6-11.0)
== END 2024-09-04 09:52 | disposition short-term general hospital (02) | DRG 45 ==
PROVIDERS: ADMIT Psychiatry & Neurology Neurology; ATTEND Internal Medicine
DX: I63.9 Cerebral infarction, unspecified (principal); J96.01 Acute respiratory failure with hypoxia; A41.9 Sepsis, unspecified organism; G93.41 Metabolic encephalopathy; N17.9 Acute kidney failure, unspecified; D50.9 Iron deficiency anemia, unspecified; E11.22 Type 2 diabetes mellitus with diabetic chronic kidney disease; D32.0 Benign neoplasm of cerebral meninges; I48.0 Paroxysmal atrial fibrillation; R31.9 Hematuria, unspecified; I12.9 Hypertensive chronic kidney disease with stage 1 through stage 4 chronic kidney disease, or unspecified chronic kidney disease; N18.9 Chronic kidney disease, unspecified; E87.6 Hypokalemia; E87.5 Hyperkalemia; I16.1 Hypertensive emergency; I49.1 Atrial premature depolarization; N40.0 Benign prostatic hyperplasia without lower urinary tract symptoms; J45.909 Unspecified asthma, uncomplicated; R79.89 Other specified abnormal findings of blood chemistry; R47.1 Dysarthria and anarthria; R42 Dizziness and giddiness; R53.81 Other malaise; F41.1 Generalized anxiety disorder; H50.10 Unspecified exotropia; Z86.011 Personal history of benign neoplasm of the brain; Z79.02 Long term (current) use of antithrombotics/antiplatelets; Z79.82 Long term (current) use of aspirin; Z79.84 Long term (current) use of oral hypoglycemic drugs; Z79.899 Other long term (current) drug therapy; Z87.01 Personal history of pneumonia (recurrent); Z87.891 Personal history of nicotine dependence; Z90.79 Acquired absence of other genital organ(s); Z91.81 History of falling
CPT/HCPCS: 36415; 36600; 71045; 80048; 80053; 82375; 82805; 82962; 83036; 83605; 83880; 84145; 84484; 85025; 85379; 92523; 92610; 93005; 97110; 97112; 97116; 97162; 97166; 97530; 97535; J1450; J1815; J1953; J2185; J3490